=== PATIENT | male | born 1950 | race Caucasian/White ===

== ENCOUNTER → 2017-05-13 | Outpatient (CLI) | payer MEDICARE, OTHER ==
--- NOTE | 2017-05-13 14:59 | RAD ---
INDICATION: Neck pain COMPARISON: None. TECHNIQUE: Color, grayscale and doppler ultrasound images obtained of the carotid system bilaterally. Percent stenosis is estimated using criteria that correlates with NASCET methodology. FINDINGS: Peak systolic velocities are as follows in cm/s: Right Carotid System: CCA: 98 ICA: 68 ECA: 79 ICA/CCA Ratio 0.9 Left Carotid System: CCA: 94 ICA: 68 ECA: 92 ICA/CCA Ratio 0.7 Vertebral arteries are antegrade bilaterally. There is some intimal thickening identified. There are some scattered plaque seen. IMPRESSION: 1. No hemodynamically significant stenosis of the internal carotid arteries bilaterally.
--- NOTE | 2017-05-13 15:28 | RAD ---
INDICATION:cold feet with concern for arterial disease. COMPARISON: None. FINDINGS: Spectral Doppler, grayscale ultrasound images are obtained through bilateral leg arterial system. In addition an ankle brachial index was calculated. Ankle brachial index: Peak systolic velocities are in millimeters of mercury. Right arm: 128 Left arm: 136 Right leg 142-148 Left leg 124-134 Right ankle brachial index 1.1 Left ankle-brachial index 1.0 Doppler findings: Triphasic or biphasic waveforms are seen throughout the right leg arterial structures without a high-grade stenosis identified. Triphasic or biphasic waveforms are seen throughout the left leg arterial structures without a high-grade stenosis. IMPRESSION: Ankle brachial index is 1.1 on the right and 1.0 on the left. No evidence of high-grade stenosis of bilateral leg arterial system.
== END | disposition home or self-care (01) ==
LOC: US 09:12
PROVIDERS: ATTEND Family Medicine
DX: I73.9 Peripheral vascular disease, unspecified (principal); R20.8 Other disturbances of skin sensation; R42 Dizziness and giddiness; R51 Headache
CPT/HCPCS: 93880; 93922; 93925

== ENCOUNTER → 2020-01-13 | Outpatient (CLI) | payer MEDICARE ==
--- NOTE | 2020-01-13 13:08 | RAD ---
BILATERAL DUPLEX CAROTID SONOGRAPHY History: Unusual headaches. Plaque buildup. Technique: Duplex sonography of the cervical portion of both carotid arteries was performed. Real-time grayscale, color flow Doppler, and Doppler spectral waveform analysis is performed. Findings: Right side: Peak systolic flow velocity of the CCA is 89 cm/sec. Peak systolic flow velocity of the ICA is 98 cm/sec. The ICA/CCA ratio is 1.1. Peak end diastolic flow velocity of the ICA is 29 cm/sec. The peak systolic velocity of the ECA is 149 cm/sec. There is CCA intimal thickening. No significant plaque formation is identified. Left side: Peak systolic flow velocity of the CCA is 105 cm/sec. Peak systolic flow velocity of the ICA is 113 cm/sec. The ICA/CCA ratio is 1.1. Peak end diastolic flow velocity of the ICA is 33 cm/sec. Peak systolic flow velocity of the ECA is 157 cm/sec. No significant plaque formation is identified. There is CCA intimal thickening. Vertebral arteries: Bilateral vertebral arteries demonstrate antegrade flow. IMPRESSION: No hemodynamically significant internal carotid artery stenosis is identified. PQRS Compliance Statement - Stenosis calculations for CT, MR and conventional angiography are based upon measurement of the distal ICA diameter in accordance with the NASCET methodology. Stenosis calculations for carotid ultrasound studies are derived from validated velocity criteria which are known to correlate with the NASCET methodology. Electronically signed by: Washington Fuentes MD (01/13/2020 1:05 PM) [id number]
== END | disposition home or self-care (01) ==
LOC: US 11:17
PROVIDERS: ATTEND Family Medicine
DX: R09.89 Other specified symptoms and signs involving the circulatory and respiratory systems (principal); R51 Headache
CPT/HCPCS: 93880

== ENCOUNTER → 2020-05-15 | Outpatient (CLI) | payer MEDICARE ==
[~2020-05-15] MED LIST: EZET10TA20 PO; LISI-334 PO; PROP40TA PO; SIMV20TA18 PO
== END | disposition home or self-care (01) ==
LOC: LAB 09:10
PROVIDERS: ATTEND Registered Nurse
DX: Z01.818 Encounter for other preprocedural examination (principal); Z11.59 Encounter for screening for other viral diseases; Z80.0 Family history of malignant neoplasm of digestive organs
CPT/HCPCS: 36415; U0003

== ENCOUNTER → 2020-05-18 | Day surgery (SDC) | payer MEDICARE ==
[~2020-05-18] MED LIST changes: +IPRATRPIUM/ALBUTEROL 0.5/2.5MG 3 ML NEBU. NEB PRN; +IV RINGERS SOLUTION,LACTATED 1,000 ML IV SCH; +MIDAZOLAM HCL PF 2 MG/2 ML VIAL. IV ONE; +ONDANSETRON PF 4 MG/2 ML VIAL. IV PRN; +PROPOFOL 10,000 MCG/ML (20ML) VIAL IV ONE
[2020-05-18 09:58] VITALS: BP 104/61
--- NOTE | 2020-05-22 18:11 | PATHOLOGY ---
[facility] Accession Number: [id number] . 01 Material submitted: . colon - TRANSVERSE COLON POLYP. Modifiers: transverse . 01 Clinical history: . None provided. . 02 Diagnosis: Colon biopsies, transverse colon polyp: - Tubular adenoma. ([facility] 05/22/2020) [facility] 05/22/2020 1334 Local . 02 Comment: Sections of the transverse colon biopsy reveal several segments of colonic mucosa, one of which contains a tubular adenoma. Another biopsy segment contains a small hyperplastic mucosal-associated lymphoid aggregate. There is no high-grade dysplasia or evidence of malignancy. ([facility] 05/22/2020) . 02 Electronically signed: . Louis Gutierrez MD, Pathologist NPI- [id number] . 01 Gross description: . Received in formalin labeled "Sonnenmoser, Mode, transverse polyp" is a 0.6 x 0.6 x 0.2 cm aggregate of ramírez-brown soft tissue fragments. The specimen is submitted entirely in A1. ([facility]; 05/21/2020) [facility] 05/21/2020 1002 Local . 02 Pathologist provided ICD-10: D12.3 . 02 CPT . 251391 Specimen Comment: A courtesy copy of this report has been sent to [phone] Specimen Comment: [id number] Specimen Comment: Report sent to / DR WATKINS Performed at: 01 [facility] [address], [place] [id number] MD Anthony Hicks MD Phone: [phone] Performed at: 02 [facility] [address], [place] [id number] MD Louis Gutierrez MD Phone: [phone]
== END | disposition home or self-care (01) ==
LOC: SURG 07:19
PROVIDERS: ATTEND Internal Medicine Gastroenterology
DX: Z12.11 Encounter for screening for malignant neoplasm of colon (principal); D12.3 Benign neoplasm of transverse colon; Z86.010 Personal history of colon polyps; Z80.0 Family history of malignant neoplasm of digestive organs; Z79.899 Other long term (current) drug therapy
CPT/HCPCS: 45380; J2704; J7120